=== PATIENT | male | born 1985 | race Two or more races ===

== ENCOUNTER 2025-06-22 16:10 | Emergency (ER) | payer MEDICAID, SELFPAY ==
[2025-06-22 16:31] VITALS: BP 107/62; PULSE 72; RESP 16; TEMP 37; O2SAT 96; BMI 19.5
--- NOTE | 2025-06-22 16:41 | XR_ITS ---
Examination: PA lateral chest 2 views Technique: Upright PA lateral chest 2 views Date and time: June 22, 2025 1734 hrs. Indications: Chest pain today. Findings: No marked size. Lungs are clear. The osseous structures are intact Impression: No active disease
--- NOTE | 2025-06-22 16:41 | EKG_ITS ---
[facility] Test Date: 2025-06-22 Pat Name: ROBERT HOLLAND Department: Room: - Gender: Male Mysql Developer: : 1985 Requested By: Christopher Hidalgo Order Number: [id number] Reading MD: Christopher Hidalgo Measurements Intervals [place] Rate: 74 P: 32 IN: 164 QRS: 40 QRSD: 85 T: 31 QT: 359 QTc: 399 Interpretive Statements SINUS RHYTHM No previous ECG available for comparison /store/S0/[id number].pdf
--- NOTE | 2025-06-22 16:41 | PD.EDRME ---
Rapid Medical Screening Exam RME Arrival date/time: 06/22/25 16:10 39-year-old male with no known medical history presents to the emergency room with a chief complaint of 10 out of 10 sternal chest pain and shortness of breath x 3 days I have greeted and performed a focused initial assessment of this patient. A comprehensive ED assessment and evaluation of the patient, analysis of all test results, and completion of the medical decision making process will be conducted by additional ED providers. Chief Complaint: General Adult/Misc Complain Vital signs: Vital Signs Temperature 98.6 F 06/22/25 16:31 Pulse Rate 72 06/22/25 16:31 Respiratory Rate 16 06/22/25 16:31 Blood Pressure 107/62 06/22/25 16:31 Pulse Oximetry (%) 96 06/22/25 16:31 Oxygen Delivery Method Room Air 06/22/25 16:31 Vital signs reviewed by provider: Yes
[2025-06-22 17:29] LABS: Collection Type, Urine Clean Catch
[2025-06-22 17:36] LABS: Basophils # (Auto) 0.1 Thou/mm3 (0.0-0.2); Basophils % (Auto) 1 % (0-2.5); Eosinophils # (Auto) 0.2 Thou/mm3 (0.0-0.5); Eosinophils % (Auto) 2 % (0-10); Hematocrit 37.5 % (41.0-53.0); Hemoglobin 12.6 g/dL (13.5-16.0); Immature Granulocytes Auto 0.03 Thou/mm3 (0.00-0.00); Lymphocytes # (Auto) 2.1 Thou/mm3 (1.0-4.8); Lymphocytes % (Auto) 24 % (10-50); Mean Corpuscular HGB Conc 33.6 g/dl (31.0-37.0); Mean Corpuscular Hemoglobin 27.9 pg (25.0-35.0); Mean Corpuscular Volume 83 fL (80-100); Monocytes # (Auto) 0.7 Thou/mm3 (0.0-0.8); Monocytes % (Auto) 7 % (0-12); Neutrophils # (Auto) 5.9 Thou/mm3 (1.8-7.7); Neutrophils % (Auto) 66 % (37-80); Nucleated Red Blood Cell # 0.00 Thou/mm3 (0.00-0.00); Nucleated Red Blood Cell % 0 /100 WBC (0); Platelet Count 311 Thou/mm3 (140-440); RDW Standard Deviation 41.8 fL (35.1-43.9); Red Blood Count 4.51 Miln/mm3 (4.50-5.90); White Blood Count 9.0 Thou/mm3 (3.8-10.6)
[2025-06-22 17:39] LABS: Bilirubin,Urine Negative (Negative); Blood,Urine Negative (Negative); Clarity,Urine Clear (Clear/Hazy); Color,Urine Yellow (Lt Yel-Yel); Culture Indicated,Urine Not Indicated; Glucose, Urine Negative (Negative); Ketones,Urine Negative (Negative); Leukocyte Esterase,Urine Negative (Negative); Nitrite,Urine Negative (Negative); PH,Urine 6.5 (5.0-7.0); Protein,Urine Trace (Neg - Trace); RBC,Urine 1 /hpf (0-3); Specific Gravity,Urine 1.031 (1.001-1.035); Squamous Epithelial Cell,Urine < 1 /hpf (0-5); Urobilinogen,Urine Negative mg/dL (0.0-1.0); WBC,Urine 1 /hpf (0-5)
[2025-06-22 17:43] LABS: Amphetamine/Methamp Scrn,U Negative (Negative); Barbiturate Screen,Urine Negative (Negative); Benzodiazepines Screen,Urine Negative (Negative); Benzoylecgonine Screen, Ur Negative (Negative); Fentanyl Screen,Urine Negative (Negative); Opiate Screen,Urine Negative (Negative); THC Screen,Urine Negative (Negative)
[2025-06-22 17:47] LABS: Sperm,Urine Present
[2025-06-22 17:49] LABS: B-Type Natriuretic Peptide < 20 pg/mL (0-100)
[2025-06-22 17:50] LABS: Alanine Aminotransferase 19 U/L (10-49); Albumin, Serum 4.6 gm/dL (3.5-5.0); Albumin/Globulin Ratio 2.0 (1.2-2.2); Alkaline Phosphatase 97 U/L (46-116); Anion Gap 9 (7-16); Aspartate Amino Transferase 24 U/L (0-34); BUN/Creatinine Ratio 11 Ratio (12-20); Bilirubin,Total 0.4 mg/dL (0.3-1.2); Blood Urea Nitrogen 10 mg/dL (9-23); Calcium 9.9 mg/dL (8.3-10.6); Calcium (Corrected) 9.9 mg/dL (8.5-10.1); Carbon Dioxide 25.3 mMol/L (20.0-31.0); Chloride 105 mMol/L (98-107); Creatinine (Component) 0.9 mg/dL (0.6-1.3); Estimated Creatinine Clearance 87.5 mL/min (>60); Globulin 2.3 gm/dL (2.3-3.5); Glucose 103 mg/dL (74-106); Magnesium 2.4 mg/dL (1.6-2.6); Osmolality,Calculated 276 (275-295); Potassium 3.8 mMol/L (3.4-5.1); Sodium 139 mMol/L (136-145); Total Protein 6.9 gm/dL (5.7-8.2); Troponin I < 0.002 ng/mL (0.0-0.045); eGFR > 60 See Note
[2025-06-22 17:51] LABS: INR 1.0 (0.9-1.3); Partial Thromboplastin Time 29.1 Seconds (22.0-36.0); Prothrombin Time 10.3 Seconds (9.0-12.2)
[2025-06-22 19:32] VITALS: BP 112/67; PULSE 70; RESP 18; TEMP 36.8; O2SAT 99
--- NOTE | 2025-06-22 19:48 | PD.EDADULT ---
ED General RME/HPI General Chief complaint: General Adult/Misc Complain Stated complaint: CHEST HURTS, FEELS LIKE SOMETHING IS STUCK. Time Seen by Provider: 06/22/25 19:16 Arrival date/time: 06/22/25 16:10 CC: Chest pain shortness of breath HPI ongoing for the past 3 days. Patient's points to his center chest states is a burning sensation especially when after drinking carbonated sodas. Patient denies fever chills shortness of breath difficulty breathing no prior history of similar events. Present at this time. RME / HPI RME / HPI narrative: 06/22/25 16:10 39-year-old male with no known medical history presents to the emergency room with a chief complaint of 10 out of 10 sternal chest pain and shortness of breath x 3 days I have greeted and performed a focused initial assessment of this patient. A comprehensive ED assessment and evaluation of the patient, analysis of all test results, and completion of the medical decision making process will be conducted by additional ED providers. Related Data Previous Rx's ?Medication ?Instructions ?Recorded pantoprazole 20 mg tablet,delayed 20 mg PO QDAY #30 tabs 06/22/25 release (Protonix) Allergies Allergy/AdvReac Type Severity Reaction Status Date / Time No Known Allergies Allergy Verified 06/22/25 16:16 Review of Systems Review of Systems Narrative Review of Systems: GEN: No fever, no chills, no weight loss EYES: No discharge, no visual changes, no pain HEENT: No ear pain, no congestion, no sore throat PULM: No shortness of breath, no cough, no congestion CV: + chest pain, no dyspnea on exertion, no palpitations GI: No nausea, no vomiting, no diarrhea, no pain, no constipation : No frequency, no urgency, no dysuria MUSC/SKEL: No joint pain, no back pain SKIN: No rash PSYCH: No hallucinations, no depression HEME/LYMPH: No easy bleeding or bruising tendencies NEURO: No weakness, no headache Past Medical History Social History SMOKING STATUS: Never smoker ED Exam Narrative Physical exam: [General: Not in any acute distress Head normocephalic HEENT: Within acceptable limits Neck is supple nontender Chest equal chest rise nontender to palpation Respiratory: Clear to auscultation no wheezes crackles or rubs CV: Rate rhythm is regular no murmurs rubs or clicks Abdomen is soft nontender no masses positive bowel sounds all 4 quadrants Back: No CVA tenderness no spinous process tenderness from cervical spine thoracic and lumbar spine Skin: Intact no petechiae rash induration ulceration or crepitus Extremities: Moving all extremity against resistance cap refill less than 2 seconds neurosensory intact Neuro: Awake alert oriented x3 Glascow coma 15 no focal deficits] Course Course Course Narrative: After lengthy discussion with this patient was determined that his mostly epigastric pain is radiating upward underneath the sternum. Worse after drinking carbonated drinks, or after meals. At this time patient advised to stick to a plan bland diet, will give him Protonix and he is to follow-up with his primary care doctor. Quality Measures none Orders Category Date Time Status EKG (ED ONLY) *Do not use* NOW Care 06/22/25 16:41 Completed EKG (ED Only) Stat Exams 06/22/25 16:41 Draft XR chest 2V Stat Exams 06/22/25 16:41 Completed B-Type Natriuretic Peptide Stat Lab 06/22/25 16:53 Completed CBC Stat Lab 06/22/25 16:53 Completed Comprehensive Metabolic Panel Stat Lab 06/22/25 16:53 Completed Drug Screen,Urine Stat Lab 06/22/25 17:15 Completed Magnesium Stat Lab 06/22/25 16:53 Completed Partial Thromboplastin Time Stat Lab 06/22/25 16:53 Completed Prothrombin Time with INR Stat Lab 06/22/25 16:53 Completed Troponin I Stat Lab 06/22/25 16:53 Completed Urinalysis, C/S if Indicated Stat Lab 06/22/25 17:15 Completed Vital Signs Vital signs: Vital Signs Temperature 98.6 F 06/22/25 16:31 Pulse Rate 72 06/22/25 16:31 Respiratory Rate 16 06/22/25 16:31 Blood Pressure 107/62 06/22/25 16:31 Pulse Oximetry (%) 96 06/22/25 16:31 Oxygen Delivery Method Room Air 06/22/25 16:31 Discharge Plan Plan Patient Disposition: HOME (Self Care) Patient condition on transfer: Stable Prescriptions/Referrals Prescriptions/Med Rec: New pantoprazole [Protonix] 20 mg tablet,delayed release (DR/EC) 20 mg PO QDAY Qty: 30 0RF Referrals: Jarrod Escobar MD [Physician, Family Practice] - In 1 week No Primary/Family,Physician [Primary Care Provider] - In 1 week Problem List Clinical Impression: Acid reflux Patient/Caregiver Discharge Instructions Education Materials: ED GERD (Adult) Print Language: Uzbek Stand Alone Forms: Kassy Award Info., Patient Portal Info Letter, Work/School Release PA/LIMITED RADIOLOGY TECHNICIAN Supervising Physician PA/LIMITED RADIOLOGY TECHNICIAN Supervising Physician: Yvan Wallace ENP [facility] Clinical Information Provided by: patient Medical Records reviewed [facility] Meds/Rx considered, not ordered None Labs/Rad/Tests considered, not ordered None Chronic Illness/Social Conditions which may negatively complicate care or outcome(s)-explain: None or not applicable EKG Interpretation EKG #1: EKG Interpretation: EKG performed at 1641 shows a ventricular rate of 74 PA interval 164 QRS of 85 QTc of 386 is normal sinus rhythm. Labs Labs: interpreted by mn Lab(s) Interpretation(s): CBC shows no acute leukocytosis anemia thrombocytopenia Coags within acceptable limits CMP shows no significant electrolyte imbalances renal impairment transaminitis or T. bili elevation Troponin is negative BNP is negative. Urine is negative for any UTI. UDS is negative for any illicit drugs. Imaging Imaging interpretation: interpreted by me Imaging Interpretation(s): Chest x-ray is negative Diagnosis Differential Diagnosis ED Complaint MDM: ACS and pneumonia
[2025-06-22 20:08] VITALS: BP 125/85; PULSE 85; RESP 14; TEMP 37; O2SAT 99
== END 2025-06-22 20:09 | disposition home or self-care (01) ==
PROVIDERS: Nurse Practitioner Family; Emergency Provider Family Medicine
DX: K21.9 Gastro-esophageal reflux disease without esophagitis (principal); R07.9 Chest pain, unspecified
CPT/HCPCS: 36415; 71046; 80053; 80307; 81001; 83735; 83880; 84484; 85025; 85610; 85730; 93005; 99284